=== PATIENT | male | born 1985 | race Caucasian/White ===

== ENCOUNTER 2023-08-24 10:08 | Emergency (ER) | payer MEDICARE, OTHER ==
[~2023-08-24] VITALS: Ht 182.9 cm; Wt 91.0 kg
[2023-08-24] MEDS ORDERED: LEVETIRACETAM 1000MG PREMIX 100 ML IV ONE (10:15)
[2023-08-24 10:20] VITALS: TEMP 98; O2SAT 100
[2023-08-24] MEDS ORDERED: keppra (10:20)
[2023-08-24 10:27] VITALS: BP 155/73; PULSE 106; RESP 28
[2023-08-24 11:09] LABS: BASOPHILS % 0.7 % (0.0-2.0); EOSINOPHILS % 1.3 % (0.0-5.0); HEMATOCRIT. 42.4 % (42.0-52.0); HEMOGLOBIN. 14.4 g/dL (14.0-18.0); LYMPHOCYTES % 24.2 % (20.0-50.0); MEAN CORPUSCULAR HGB CONC 33.8 g/dL (31.0-37.0); MEAN CORPUSCULAR VOLUME 88.6 fL (80.0-94.0); MEAN PLATELET VOLUME 7.3 fl (7.4-10.4); MONOCYTES % 10.3 % (2.0-8.0); NEUTROPHILS % 63.5 % (40.0-76.0); PLATELET 266 x1000/uL (130-400); RED BLOOD CELL COUNT 4.79 mill/uL (4.7-6.1); RED CELL DISTRIBUTION WIDTH 14.1 % (11.6-14.6); WHITE BLOOD COUNT 5.3 x1000/uL (4.5-11.0)
[2023-08-24 11:25] LABS: ALANINE AMINOTRANSFERASE 18 IU/L (10-49); ALBUMIN 4.2 g/dL (3.2-4.8); ASPARTATE AMINOTRANSFERASE 22 IU/L (<34); BILIRUBIN TOTAL 0.7 mg/dL (0.1-1.0); CALCIUM 9.1 mg/dL (8.7-10.4); CARBON DIOXIDE 27 mEq/L (21-32); CHLORIDE 104 mEq/L (98-107); CREATININE 0.7 mg/dL (0.6-1.3); GLUCOSE 68 mg/dL (70-105); POTASSIUM 4.1 mEq/L (3.5-5.1); PROTEIN TOTAL 7.3 g/dL (6.0-8.3); SODIUM 139 mEq/L (136-145); UREA NITROGEN BLOOD 15 mg/dL (9-23)
[2023-08-24 11:40] LABS: ETHANOL BLOOD < 10 mg/dL (<10); PHENOBARBITAL < 3.0 ug/mL (15.0-40.0)
[2023-08-24] MEDS ORDERED: KEPP500 PO (12:05)
== END 2023-08-24 12:34 | disposition home or self-care (01) ==
LOC: ER 10:24
DX: R56.9 Unspecified convulsions (principal)
CPT/HCPCS: 80053; 80320; 80184; 85025; 36415; 96365; 99284; J1953; G0480

== ENCOUNTER 2025-05-14 21:29 | Emergency (ER) | payer MEDICARE ==
[~2025-05-14] VITALS: Ht 175.3 cm; Wt 80.0 kg
[~2025-05-14 21:29] MED LIST: KEPP500 PO; PHEN100C4 PO
[2025-05-14 21:33] VITALS: O2SAT 100
[2025-05-14 21:55] VITALS: TEMP 36.9
[2025-05-14] MEDS: LEVETIRACETAM 1000MG PREMIX 100 ML IV ONE (22:19)
[2025-05-14 22:56] LABS: BASOPHILS % 0.6 % (0.0-2.0); EOSINOPHILS % 2.4 % (0.0-5.0); HEMATOCRIT. 41.6 % (42.0-52.0); HEMOGLOBIN. 13.9 g/dL (14.0-18.0); LYMPHOCYTES % 32.8 % (20.0-50.0); MEAN PLATELET VOLUME 7.6 fl (7.4-10.4); MONOCYTES % 8.5 % (2.0-8.0); NEUTROPHILS % 55.7 % (40.0-76.0); PLATELET 261 x1000/uL (130-400); RED BLOOD CELL COUNT 4.69 mill/uL (4.7-6.1); RED CELL DISTRIBUTION WIDTH 14.0 % (11.6-14.6)
[2025-05-14 23:13] LABS: CREATININE 1.0 mg/dL (0.6-1.3); UREA NITROGEN BLOOD 10 mg/dL (9-23)
[2025-05-15] MEDS ORDERED: LEVE1000 MT (03:29)
[2025-05-15 03:37] VITALS: BP 107/57; PULSE 57; RESP 12; O2SAT 95
== END 2025-05-15 04:10 | disposition home or self-care (01) ==
LOC: ER 21:29
DX: G40.909 Epilepsy, unspecified, not intractable, without status epilepticus (principal); Z79.899 Other long term (current) drug therapy; Z91.148 Patient's other noncompliance with medication regimen for other reason
CPT/HCPCS: 99285; 96365; 96366; 80048; 82962; 85025; 36415; 93005; J1953